=== PATIENT | male | born 1990 | race Caucasian/White ===

== ENCOUNTER 2018-02-02 17:22 | Emergency (ER) | payer OTHER | END 2018-02-02 20:41 | disposition home or self-care (01) | LOC: FTE 17:22 | DX: M54.42 Lumbago with sciatica, left side (principal); J45.909 Unspecified asthma, uncomplicated | CPT/HCPCS: 99283; Z7502 ==

== ENCOUNTER 2018-12-24 16:57 | Emergency (ER) | payer OTHER | END 2018-12-24 17:56 | disposition home or self-care (01) | LOC: FTE 16:57 | DX: G35 Multiple sclerosis (principal); J45.909 Unspecified asthma, uncomplicated | CPT/HCPCS: 99283; Z7502 ==